=== PATIENT | male | born 1975 | race Caucasian/White ===

== ENCOUNTER 2017-07-06 16:59 | Inpatient (IN) | payer BC, OTHER ==
[2017-07-06] VITALS: BP 114/74
[~2017-07-06] VITALS: Ht 182.9 cm; Wt 95.3 kg
[2017-07-06] MEDS ORDERED: MIRALAX 17 GM POWD.PACK PO PRN (20:00)
[2017-07-06] MEDS ORDERED: ONDANSETRON ODT 4 MG TAB.RAPDIS SL PRN (20:00)
[2017-07-06] MEDS ORDERED: CLONIDINE HCL 0.1 MG TABLET PO PRN (20:00)
[2017-07-06] MEDS ORDERED: DICYCLOMINE HCL 20 MG TABLET PO PRN (20:00)
[2017-07-06] MEDS ORDERED: LORAZEPAM 2 MG/1 ML VIAL IM PRN (20:00)
[2017-07-06] MEDS ORDERED: LOPERAMIDE HCL 2 MG CAPSULE PO PRN ×2 (20:00)
[2017-07-06] MEDS ORDERED: ACETAMINOPHEN 325 MG TABLET PO PRN (20:00)
[2017-07-06] MEDS ORDERED: MAG HYDROX/AL HYDROX/SIMETH 30 ML LIQUID UDC PO PRN (20:00)
[2017-07-06] MEDS ORDERED: IBUPROFEN 400 MG TABLET PO PRN (20:00)
[2017-07-06] MEDS ORDERED: DOCUSATE SODIUM 250 MG CAPSULE PO PRN (20:00)
[2017-07-06] MEDS ORDERED: ONDANSETRON 4 MG/2 ML VIAL IM PRN (20:00)
[2017-07-06] MEDS ORDERED: DIAZEPAM 10 MG TABLET PO PRN ×2 (20:00)
[2017-07-06] MEDS ORDERED: DIAZEPAM 5 MG TABLET PO PRN (20:00)
[2017-07-06] MEDS ORDERED: MAGNESIUM HYDROXIDE 30 ML LIQUID UDC PO PRN (20:00)
[2017-07-06] MEDS ORDERED: DIAZEPAM 10 MG TABLET PO SCH (21:00)
--- NOTE | 2017-07-06 21:50 | NUR ---
PRE - ADMISSION NOTE : Pt. is 42 year old male , came to [facility] for medically supervised withdrawal from ROXYCONTIN, PERCOCET, DIAZEPAM on 07/06/2017 . Pt. is NKA, Full Code, on Regular Diet Pt. denies history of withdrawal-induced seizures. Pt. denies history of SI/Hi. Pt. states that drug usage negatively affects his social, professional and private life. Upon admission pt. is intoxicated , poor eye contact, anxious, sad facial expression, flat affect, time to time he is restless, emotionally volatile, poor concentration. He complains of difficulty falling asleep and insomnia, wakes up frequently and has restless sleep. Pt. also states difficulty to struggle with his chronic cervical pain after three operations ( C4-Th1 Fusion) , last one in January 2017. Pt. is intoxicated , alert and oriented x3, speech is clear and audible. Pt. denies chest pain, shortness of breath, PERRLA (bilateral miosis), RS=467/83, HR=80,regular, RR=16, unlabored and even, SpO2=98% with a room air, he denies pain at this time. Sgykhx=[id number], Height=6. CIWA=6, COWS=4. Pt. will be admitted to the unit.
[2017-07-06 22:00] VITALS: BP 128/83
[2017-07-06 22:19] LABS: *AMPHETAMINE, URINE NEGATIVE (NEGATIVE); *BARBITURATE, URINE NEGATIVE (NEGATIVE); *CANNABINOID, URINE POSITIVE (NEGATIVE); *COCCAINE, URINE NEGATIVE (NEGATIVE); *OPIATE, URINE POSITIVE (NEGATIVE); *PHENCYCLIDINE SCREEN,URINE NEGATIVE (NEGATIVE)
[2017-07-06 22:42] LABS: BASOPHILS # (AUTO) 0.1 K/uL (0.0-8.0); EOSINOPHILS # (AUTO) 0.2 K/uL (0.0-0.7); EOSINOPHILS % (AUTO) 2.4 % (0.0-7.0); HEMOGLOBIN 13.7 g/dL (12.5-16.3); LYMPHOCYTES # (AUTO) 2.5 K/uL (20.0-40.0); LYMPHOCYTES % (AUTO) 36.9 % (20.5-51.5); MEAN CORPUSCULAR HEMOGLOBIN 30.1 uug (23.8-33.4); MEAN CORPUSCULAR HGB CONC 34 g/dL (32.5-36.3); MEAN CORPUSCULAR VOLUME 87.7 fL (73.0-96.2); MONOCYTES # (AUTO) 0.6 K/uL (2.0-10.0); MONOCYTES % (AUTO) 8.3 % (0.0-11.0); NEUTROPHILS # (AUTO) 3.6 K/uL (1.8-8.9); NEUTROPHILS % (AUTO) 51.4 % (38.5-71.5); PLATELET COUNT (AUTO) 178 K/uL (152-348); RED BLOOD CELL COUNT(AUTO) 4.57 MIL/uL (4.06-5.63); WHITE BLOOD COUNT (AUTO) 6.9 K/uL (3.6-10.2)
[2017-07-06 22:55] LABS: ALANINE AMINOTRANSFERASE 20 U/L (16-63); ALKALINE PHOSPHATASE 68 U/L (50-136); ASPARTATE AMINOTRANSFERASE 16 U/L (15-37); BILIRUBIN,TOTAL 0.4 mg/dL (0.2-1.0); CARBON DIOXIDE 28 mmol/L (21-32); CHLORIDE 103 mmol/L (98-107); GLUCOSE 93 mg/dL (74-106); MAGNESIUM 1.7 mg/dL (1.8-2.4); TOTAL PROTEIN, SERUM 7.7 g/dL (6.4-8.2); UREA NITROGEN, BLOOD 19 mg/dL (7-18)
[2017-07-06 23:00] LABS: ETHANOL < 3 MG/DL (0-0)
[2017-07-06] MEDS ORDERED: BUPRENORPHINE HCL 2 MG TAB.SUBL SL PRN (23:55)
--- NOTE | 2017-07-06 23:59 | NUR ---
ADMISSION NOTE : Pt. is 42 year old male , admitted to [facility] for medically supervised withdrawal from ROXYCONTIN, PERCOCET, DIAZEPAM on 07/06/2017 . Pt. is NKA, Full Code, on Regular Diet. He placed on 5 day Subutex and Valium taper started on 07/07/2017. His Primary Care Provider is Dr. Yaneli Martines, [place], [place]. Pt. denies history of withdrawal-induced seizures. Pt. denies history of SI/Hi. Pt. states that drug usage negatively affects his social, professional and private life. Upon admission pt. is intoxicated , poor eye contact, anxious, sad facial expression, flat affect, time to time he is restless, emotionally volatile, poor concentration. He complains of difficulty falling asleep and insomnia, wakes up frequently and has restless sleep. Pt. also states difficulty to struggle with his chronic cervical pain after three operations ( C4-Th1 Fusion) , last one in January 2017. Pt. is INTOXICATED , alert and oriented x3, speech is clear and audible. Pt. denies chest pain, shortness of breath, PERRLA (bilateral miosis), WM=283/83, HR=80,regular, RR=16, unlabored and even, SpO2=98% with a room air, he denies pain at this time. Atadyp=[id number], Height=6. CIWA=6, COWS=4. Lungs sound clear in all lobes, abdomen is soft , last BM on 07/06/2017. Pt.s skin is intact and dry. Pt. was able to provide UDS sample, see results in the PC chart. las BM on 07/06/2017. Pt. was oriented to his room and unit, provided with printed and verbal instructions about Substance Use Disorder, Fall Risks , Seizures, medical management for medically supervised withdrawal. Safety measures in place : bed on lowest position with side rails x2 up for safety, call light within reach. Will continue to monitor closely and offer help. SUBSTANCE USE HISTORY : Diazepam 30mg QD PO 5 mo., last use on 07/06/2017 , uses since January 2017 ROXYCONTIN 50mg QD PO , last use on 07/06/2017 , uses since January 2017 PERCOCET 10mg QD PO , last use on 07/06/2017 , uses since January 2017 Pt. smokes occasionally Marijuana. TREATMENT HISTORY : Pt. states multiple attempts of detox. at home, it his first detox. in the medical facility. PAST MEDICAL HISTORY : Anxiety, Depression , C4-Th1 Fusion ( three operations in 2011, 2013, 2016) FAMILY HISTORY : CAD, DM II, HTN , Ca.
[2017-07-07] VITALS: BP 114/74
[2017-07-07] MEDS ORDERED: Lidocaine EXT (05:09)
[2017-07-07] MEDS ORDERED: PREG150C PO (05:10)
[2017-07-07] MEDS ORDERED: DOCU100C36 PO (05:13)
[2017-07-07] MEDS ORDERED: ACYC200C PO (05:13)
[2017-07-07] MEDS ORDERED: DIAZ10TA PO (05:16)
[2017-07-07] MEDS ORDERED: BUPR-51 PO (05:16)
[2017-07-07] MEDS ORDERED: OXYC-133 PO (05:16)
[2017-07-07] MEDS ORDERED: OXYC15TA46 PO (05:16)
[2017-07-07] MEDS ORDERED: BUPR100T5 PO (05:17)
--- NOTE | 2017-07-07 06:16 | NUR ---
END OF SHIFT NOTE : Pt. is 42 year old male , admitted to [facility] for medically supervised withdrawal from ROXYCONTIN, PERCOCET, DIAZEPAM on 07/06/2017 . He placed on 5 day Subutex and Valium taper started on 07/07/2017. Pt. is compliant with a TX plan, No PRNs given during material handler 2nd shift . CIWA , COWS taken when pt. was awake, he is still intoxicated, bilateral meiosis. He slept for most of the night. Last CIWA=6 COWS= 4 at 04:00. Qaqszq=[id number] , voided x 1 , slept= 6 hours. Safety measures in place : bed on lowest position with side rails x2 up for safety, call light within reach. Will continue to monitor closely and offer help.
--- NOTE | 2017-07-07 07:43 | NUR ---
Start of Shift Manager Ecommerce received report on 42 year old male admitted to [facility] on 07/06/17 for Benzodiazepine and Opiate detoxification. Pt reports NKDA, eats a regular diet and is a full code. Pt reports a PMH of anxiety, depression, C4-T1 fusion with 3 previous operations. No PRN medication administered on NOC, with a OT order of 10mg Valium administered. Pt will start a Valium and Subutex taper this morning. Last COWS 4 and CIWA 6, per NOC. Manager Ecommerce encounters pt in his room resting on bed. Pt is A/O x4, calm and cooperative and able to make needs known. Pt denies any associated withdrawal symptoms and is, feeling pretty good. Pts only complaint is that of discomfort related to bruised ribs he suffered falling, prior to [facility] admission. Bed in low position, wheels locked and side rails up x2.
[2017-07-07 08:05] VITALS: BP 104/62
[2017-07-07] MEDS: DIAZEPAM 10 MG TABLET PO SCH ×3 (08:41→21:19)
[2017-07-07] MEDS: BUPRENORPHINE HCL 2 MG TAB.SUBL SL SCH ×3 (08:42→21:19)
[2017-07-07] MEDS ORDERED: HYDROXYZINE PAMOATE 25 MG CAPSULE PO PRN (09:00)
[2017-07-07] MEDS ORDERED: TUBERCULIN,PURIF.PROT.DERIV. 5 TU/0.1 ML TEST ID ONE (09:00)
[2017-07-07] MEDS ORDERED: MAGNESIUM OXIDE 400 MG TABLET PO ONE (09:00)
--- NOTE | 2017-07-07 09:01 | NUR ---
TB Refusal Pt states, " what do I need that for?" Pt refuses PPD administration, agreeing to a chest X-ray if necessary for placement. notified.
[2017-07-07] MEDS ORDERED: PATIENT MAY USE OWN MED- MD OK PO SCH (10:30)
[2017-07-07] MEDS: buPROPion XL 150 MG TAB.SR.24H PO SCH (12:09)
[2017-07-07] MEDS: DULOXETINE 30 MG CAPSULE.DR PO SCH (12:09)
[2017-07-07] MEDS: PATIENT MAY USE OWN MED- MD OK PO SCH ×2 (12:09→21:19)
[2017-07-07] MEDS: PATIENT MAY USE OWN MED- MD OK TOP SCH (12:10)
--- NOTE | 2017-07-07 12:16 | NUR ---
Late Administration of Medication Architectural Sales Consultant was not able to administer am medication until actually administered due to a delay from pharmacy with pt's own home meds. All medication administered with pt tolerating well. Will continue to monitor, support and encourage according to plan of care.
[2017-07-07 12:20] VITALS: BP 127/87
[2017-07-07] MEDS ORDERED: PATIENT MAY USE OWN MED- MD OK TOP ONE (15:30)
[2017-07-07 16:45] VITALS: BP 123/85
--- NOTE | 2017-07-07 19:12 | NUR ---
End of Shift Commercial Lines Underwriter provided report on 42 year old male admitted to [facility] on 07/06/17 for Benzodiazepine and Opiate detoxification. Pt reports NKDA, eats a regular diet and is a full code. Pt reports a PMH of anxiety, depression, C4-T1 fusion with 3 previous operations. No PRN medications administered this shift. Pt started on a Valium and Subutex taper today, tolerating well. Last COWS 6 and CIWA 5, recorded at 1600. Pt is A/O x4, calm and cooperative and able to make needs known. Pt has been matter of fact and concrete with a flat affect. Pt is demanding and manipulative. Staff splitting. Bed in low position, wheels locked and side rails up x2.
[2017-07-07 20:00] VITALS: BP 127/82
--- NOTE | 2017-07-07 20:00 | NUR ---
Start of Shift Note Received 42 y/o male px admitted for medical withdrawal of opiates/bezos . Px was put on 5 day Valium and 5 day Subutex taper. Px stated he feels good with the taper. Unfolded clothes noted on top of cabinet and unfinished snacks on the bed side table. Px verbalized that his anxiety is 5/10 and has body aches of 4/10. Px asked for talcum powder of some sort to help for his groin itch and pill to help him sleep tonight. Bed on lowest position, side rails up 2x, and call light within reach. We'll continue to monitor.
[2017-07-07] MEDS ORDERED: CLOTRIMAZOLE 1% CREAM 30 GM TUBE TOP PRN (20:45)
--- NOTE | 2017-07-07 21:00 | NUR ---
Clotrimazole cream Px complained of groin itch. Dr. Carrillo informed with order of Lotrimin cream 1% to apply on affected area q12H, carried out and started. We'll continue to monitor.
[2017-07-07] MEDS: diphenhydrAMINE 50 MG CAPSULE PO PRN (21:19)
--- NOTE | 2017-07-07 21:19 | NUR ---
PRN Benadryl Px asked for pill to help him sleep tonight. Benadryl 50 mg/cap, 1 cap given PO as PRN med. We'll continue to monitor.
[2017-07-07] MEDS: CLOTRIMAZOLE 1% CREAM 30 GM TUBE TOP SCH (21:20)
[2017-07-08] VITALS: BP 112/71
[2017-07-08 04:00] VITALS: BP 118/69
--- NOTE | 2017-07-08 04:00 | NUR ---
COWS and CIWA deferred COWS and CIWA deferred at 0000 and 0400 due to the px is asleep, to assess if the px is awake per doctor's order. We'll continue to monitor.
[2017-07-08 07:08] LABS: HEPATITIS B SURFACE AG Negative (Negative)
--- NOTE | 2017-07-08 07:23 | NUR ---
End of Shift Note Px informed that he can give us his soiled clothes for laundry. Benadryl 50 mg tab PO PRN and Lotrimin cream q12H were effective for his groin itch. Px slept for 6 hours. Last COWS 6 and CIWA 7. At 0500, px urinated on his clothes in bed. Px stated that he drank a lot of coffee yesterday and 4 bottles of water. Px verbalized "I was in a very deep sleep". Bed was cleaned and put fresh linens. Px's oral intake of 2 L, voided 4x, and No BM. Px slept for 6 hours. At 0600, px took a shower. Left awake on bed eating some snacks. Bed on lowest position, side rails up 2x, and call light within reach. We'll continue to monitor. Endorsed to AM shift nurse.
--- NOTE | 2017-07-08 07:30 | NUR ---
START OF SHIFT RECEIVED PT LAYING IN BED, A/OX4, RESPIRATIONS EVEN AND UNLABORED. PT REPORTS HAVING "EQUILIBRIUM PROBLEMS;" PT STATES HE DOES NOT FEEL DIZZY BUT WHEN WALKING HAVE MILD BALANCE PROBLEM. PT STATES HE IS NOT UNSTEADY WHEN WALKING. ASKED PT TO STAND AND WALK AND PT WAS ABLE TO WALK STABLE AND STEADY. ENCOURAGED PT TO DANGLE LEGS AND SLOWLY GET UP AND OFF OF BED WHEN GETTING UP. ENCOURAGED PT TO USE CALL LIGHT WHEN FEELING UNSTEADY. SIDE RAILS UP X2, BED IS IN LOWEST POSITION. ALL SAFETY MEASURES IN PLACE. WILL CONTINUE TO MONITOR.
[2017-07-08 08:00] VITALS: BP 121/77
[2017-07-08] MEDS ORDERED: BUPRENORPHINE HCL 2 MG TAB.SUBL SL SCH (09:00)
[2017-07-08] MEDS: CLOTRIMAZOLE 1% CREAM 30 GM TUBE TOP SCH ×2 (09:07→21:38)
[2017-07-08] MEDS: PATIENT MAY USE OWN MED- MD OK TOP SCH (09:07)
[2017-07-08] MEDS: DULOXETINE 30 MG CAPSULE.DR PO SCH (09:07)
[2017-07-08] MEDS: DIAZEPAM 5 MG TABLET PO SCH ×2 (09:08→12:46)
[2017-07-08] MEDS: buPROPion XL 150 MG TAB.SR.24H PO SCH (09:08)
[2017-07-08] MEDS: PATIENT MAY USE OWN MED- MD OK PO SCH ×3 (09:08→21:37)
[2017-07-08 12:00] VITALS: BP 101/70
[2017-07-08] MEDS: BUPRENORPHINE HCL 2 MG TAB.SUBL SL SCH ×2 (15:15→21:37)
[2017-07-08 16:00] VITALS: BP 130/86
[2017-07-08] MEDS ORDERED: DIAZEPAM 5 MG TABLET PO SCH (17:00)
--- NOTE | 2017-07-08 19:31 | NUR ---
END OF SHIFT LAST COWS 7, CIWA 8 @1600. PT ATTENDED ALL GROUPS AND PARTICIPATED IN ALL ACTIVITIES EXCEPT AM GROUP. PT REPORTS FEELING WEAK AND TIRED. SOFT CERVICAL BRACE GIVEN TO PT ORDERED BY MD FOR SUPPORT. PT REFUSED TO HAVE SIDE RAILS PADDED. BED IS IN LOWEST POSITION. WILL GIVE ALL ENDORSEMENT TO CARDIAC SPECIALIST NURSE.
--- NOTE | 2017-07-08 19:45 | NUR ---
Start of Shift Note Received 42 y/o male px admitted for medical withdrawal of opiates/benzos . Px was put on 5 day Valium and 5 day Subutex taper. Px is tolerating the taper. During the rounds at 1945, Bilateral hand tremors noted. Unfolded clothes noted on top of cabinet and unfinished snacks on the bed side table. Encouraged px if he has time, give his soiled clothes for laundry and he may toss his unfinished snacks in the garbage bin. Px verbalized that his anxiety is 4/10 and has spine aches of 6/10. Bed on lowest position, side rails up 2x, and call light within reach. We'll continue to monitor.
[2017-07-08 20:00] VITALS: BP 123/86
[2017-07-08] MEDS ORDERED: DIAZEPAM 10 MG TABLET PO SCH (21:00)
[2017-07-09] VITALS: BP 121/81
[2017-07-09 04:00] VITALS: BP 118/77
--- NOTE | 2017-07-09 07:02 | NUR ---
End of Shift Note No PRN meds given through the shift. At the start of shift, COWS 6 and CIWA 7. Last COWS 5 and CIWA 5 at 0635. Px slept for 9 hours. Pxs oral intake is 1 L, voided 2x , No BM. At 0640, Px went for a shower. Bed on lowest position, side rails up 2x, and call light within reach. We'll continue to monitor. Endorsed to AM shift nurse.
--- NOTE | 2017-07-09 07:15 | NUR ---
Start of Shift Business Line Controller received report on 42 year old male admitted to [facility] on 07/06/17 for Benzodiazepine and Opiate detoxification. Pt reports NKDA, eats a regular diet and is a full code. Pt reports a PMH of anxiety, depression, C4-T1 fusion with 3 previous operations. No PRN medication administered on NOC. Pt currently on a Subutex and Valium taper, tolerating well. Last COWS 5 and CIWA 5, per NOC. Business Line Controller encounters pt in his room resting on bed. Pt is A/O x4, calm and cooperative and able to make needs known. A/O x4, calm and cooperative. Pt is anxious and matter of fact with a concrete thought process and clear thought and speech. Bed in low position, wheels locked and side rails up x2.
[2017-07-09] MEDS: DIAZEPAM 5 MG TABLET PO SCH ×3 (08:31→20:28)
[2017-07-09] MEDS: DULOXETINE 30 MG CAPSULE.DR PO SCH (08:31)
[2017-07-09] MEDS: buPROPion XL 150 MG TAB.SR.24H PO SCH (08:33)
[2017-07-09] MEDS: CLOTRIMAZOLE 1% CREAM 30 GM TUBE TOP SCH ×2 (08:33→20:29)
[2017-07-09] MEDS: BUPRENORPHINE HCL 2 MG TAB.SUBL SL SCH ×3 (08:33→20:28)
[2017-07-09] MEDS: PATIENT MAY USE OWN MED- MD OK PO SCH ×5 (08:35→20:29)
[2017-07-09] MEDS: PATIENT MAY USE OWN MED- MD OK TOP SCH (08:35)
[2017-07-09 08:55] VITALS: BP 129/79
--- NOTE | 2017-07-09 09:12 | NUR ---
0900 Lysaint elizabeth edgewooda Medication scanned, own medication bag. No medication in bag, CRN retrieved dose from Pharmacy and Pharmacy entered order. Medication was administered per order.
--- NOTE | 2017-07-09 09:34 | NUR ---
ENDORSEMENT Pt endorsed to me by nurse. All information received.
--- NOTE | 2017-07-09 09:34 | NUR ---
Endorsement Full endorsement to primary nurse. All up to date data presented with no further comments, questions or concerns voiced.
--- NOTE | 2017-07-09 10:30 | NUR ---
Therapist prompted client about group times. Client has been attending all groups and plans to continue.
[2017-07-09] MEDS ORDERED: FLEET ENEMA 133 ML BOTTLE RC PRN (11:15)
[2017-07-09] MEDS: DOCUSATE SODIUM 250 MG CAPSULE PO SCH (12:08)
--- NOTE | 2017-07-09 12:29 | NUR ---
PRN Pt states feels constipated. Fleet enema administered prn per MD order.
[2017-07-09 12:37] VITALS: BP 144/81
--- NOTE | 2017-07-09 13:29 | NUR ---
PRN EVAL Pt states had small BM.
[2017-07-09] MEDS: BISACODYL 5 MG TABLET.DR PO PRN (13:53)
--- NOTE | 2017-07-09 13:54 | NUR ---
PRN Pt states still feels constipated. Dulcolax po prn per MD order given and tolerated well.
--- NOTE | 2017-07-09 14:54 | NUR ---
PRN EVAL Pt states had a bm.
[2017-07-09 16:00] VITALS: BP 138/78
[2017-07-09] MEDS ORDERED: MENT71OI TP (16:51)
--- NOTE | 2017-07-09 17:20 | NUR ---
Therapist prompted client to come to groups.
--- NOTE | 2017-07-09 18:33 | NUR ---
END OF SHIFT Pt 42 y/o male admitted for opiate medical withdrawal. Pt alert and oriented to name, place, and time. Perrla. Skin warm and moist to touch. Respirations even and unlabored. Bilateral hand tremors noted. Pt appears disheveled with hair uncombed. Pt hyperverbal with pressured speech noted. Pt malodorous. Pt observed mostly in room today. Pt was seen by MD today. Pt medication compliant. No ASE noted. Cows= 10@1200, @1600. CIWA= 9 , and 9@1700. Is on a 5 day ativan taper and is on day 4. Pt on a 4 day subutex taper and is on day 3. Pt was given a fleet enema prn per MD order and Dulcolax po prn per MD order. Bed on lowest position with side rails 2 up for safety. Call light within reach.
--- NOTE | 2017-07-09 19:30 | NUR ---
START OF SHIFT Received 42 year old male patient. Pt is alert and oriented x4. Pt is noted to be anxious, restless, aggressive and hyperactive Pt is noted with loud speech and is hyperverbal. Per endorsement, pt received PRN Enema, Dulcolax. Breathing is even and unlabored. Safety measures in place. Will continue to monitor.
[2017-07-09 20:15] VITALS: BP 138/74
[2017-07-09] MEDS: diphenhydrAMINE 50 MG CAPSULE PO PRN (20:32)
--- NOTE | 2017-07-09 20:32 | NUR ---
PRN BENADRYL Pt complains of inability to sleep. PRN Benadryl administered as ordered. Safety measures in place. Will continue to monitor effectiveness.
--- NOTE | 2017-07-09 21:32 | NUR ---
PRN REASSESSMENT PRN medication effective. Pt is lying in bed with eyes closed and is noted to be asleep. Breathing even and unlabored. Safety measures in place. Will continue to monitor.
[2017-07-10] VITALS: BP 122/78
[2017-07-10] MEDS: METHOCARBAMOL 750 MG TABLET PO PRN ×3 (03:48→22:18)
--- NOTE | 2017-07-10 03:48 | NUR ---
PRN ROBAXIN Pt complains of left thigh muscle aches 12/01. PRN Robaxin administered as ordered. Safety measures in place. Will monitor effectiveness.
[2017-07-10 03:50] VITALS: BP 116/75
--- NOTE | 2017-07-10 04:48 | NUR ---
PRN REASSESSMENT PRN medication effective. Pt lying in bed with eyes closed noted to be asleep. No facial grimacing noted. Safety measures in place. Will continue to monitor.
--- NOTE | 2017-07-10 06:58 | NUR ---
END OF SHIFT Pt is a 42 year old male patient. Pt remains alert and oriented x4. Pt was noted with anxiety and restlessness during shift. He received PRN Benadryl for insomnia, which was effective. At 0345 pt complained of left thigh pain, he received PRN Robaxin. He slept a total of 6 hrs, Intake: 1,355mL, Void: x2, BM: x1, COWS;9, CIWA:9. Breathing is even and unlabored. Safety measures in place. Endorsed to AM shift.
--- NOTE | 2017-07-10 07:30 | NUR ---
START OF SHIFT: PATIENT IS A 42 YR OLD MALE ADMITTED TO [facility] ON 07/06/17 FOR A MEDICALLY SUPERVISED WITHDRAWAL FROM OPIATES AND BENZODIAZEPINES. HE IS ON A 5 DAY SUBUTEX/VALIUM TAPER AND TODAY IS DAY 4. PATIENT IS SITTING ON SIDE ON BED WITH AN ANXIOUS EXPRESSION ON HIS FACE AND ASKING QUESTIONS ABOUT THE MEDICATIONS HE WILL BE GETTING THIS AM, ALL QUESTIONS ANSWERED BY NURSE WHICH SEEMED TO RELIEVE PATIENT ANXIETY. PATIENT REQUESTED PRN ROBAXIN AND BENADRYL ON PM SHIFT AND SLEPT FOR 6 HOURS. LAST CIWA 9 AND COWS 9 @ 0400. WILL CONTINUE TO FOLLOW MD PLAN OF CARE.
[2017-07-10 08:00] VITALS: BP 121/87
[2017-07-10] MEDS: DULOXETINE 30 MG CAPSULE.DR PO SCH (09:09)
[2017-07-10] MEDS: DIAZEPAM 5 MG TABLET PO SCH ×2 (09:09→20:18)
[2017-07-10] MEDS: DOCUSATE SODIUM 250 MG CAPSULE PO SCH (09:09)
[2017-07-10] MEDS: BUPRENORPHINE HCL 2 MG TAB.SUBL SL SCH ×2 (09:09→20:18)
[2017-07-10] MEDS: buPROPion XL 150 MG TAB.SR.24H PO SCH (09:09)
[2017-07-10] MEDS: PATIENT MAY USE OWN MED- MD OK PO SCH ×3 (09:10→20:18)
[2017-07-10] MEDS: CLOTRIMAZOLE 1% CREAM 30 GM TUBE TOP SCH ×2 (09:10→20:18)
[2017-07-10] MEDS: PATIENT MAY USE OWN MED- MD OK TOP SCH (09:11)
[2017-07-10] MEDS: [UNRECOGNIZED DRUG - OTHER] TOP PRN (09:11)
[2017-07-10] MEDS: CALMOSEPTINE TOP PRN (09:11)
[2017-07-10] MEDS ORDERED: NAPROXEN 250 MG TABLET PO PRN (11:30)
[2017-07-10 12:00] VITALS: BP 117/79
--- NOTE | 2017-07-10 13:41 | NUR ---
PRN MEDS PRN ROBAXIN 750MG PO GIVEN FOR MUSCLE ACHES, WILL REASSESS IN 1 HR
--- NOTE | 2017-07-10 13:57 | NUR ---
Therapist prompted client to come to groups.
--- NOTE | 2017-07-10 14:41 | NUR ---
PRN ROBAXIN ROBAXIN 750MG PO EFFECTIVE PER PT REPORT, BODY ACHES NOW 3/10 PER PT
[2017-07-10 16:00] VITALS: BP 114/64
--- NOTE | 2017-07-10 19:30 | NUR ---
START OF SHIFT Received 42 year old male patient. Pt is noted to be anxious and fatigued. Pt lying in bed reading. Pt verbalized that he needs rest. Per endorsement, pt received PRN Robaxin. Pt is alert and oriented x4, breathing is even and unlabored. Safety measures in place. Will continue to monitor.
--- NOTE | 2017-07-10 19:33 | NUR ---
END OF SHIFT : PATIENT ADMITTED TO [facility] ON 07/06/17 FOR WITHDRAWAL FROM OPIATES AND BENZOS. PATIENT HAS BEEN ON A 5 DAY VALIUM / SUBUTEX TAPER AND TODAY WAS DAY 4 . PATIENT HAS ATTENDED GROUP TODAY AND [place]. LAST COWS 6 AND CIWA 8 @ 1600. FLUID INTAKE OF 1800ML TODAY WITH 4 VOIDS AND 1 BM. SAFETY MEASURES IN PLACE , FOLLOW MD PLAN OF CARE
[2017-07-10 20:00] VITALS: BP 118/71
[2017-07-10] MEDS: diphenhydrAMINE 50 MG CAPSULE PO PRN (20:18)
--- NOTE | 2017-07-10 20:18 | NUR ---
PRN BENADRYL Pt complains of inability to fall asleep. PRN Benadryl administered as ordered. Safety measures in place. Will monitor effectiveness.
--- NOTE | 2017-07-10 21:18 | NUR ---
PRN BENADRYL REASSESSMENT PRN medication ineffective. Pt still awake, in recreation room. Breathing is even and unlabored, safety measures in place. Will continue to monitor.
--- NOTE | 2017-07-10 22:18 | NUR ---
PRN ROBAXIN Pt complains of left side rib muscle pain 01/01. Pt stated " I may have pulled something." PRN Robaxin administered as ordered. Safety measures in place. Will monitor effectiveness.
--- NOTE | 2017-07-10 23:18 | NUR ---
PRN ROBAXIN REASSESSMENT PRN medication effective. Pt lying in bed, appears drowsy. Reports pain has decreased. Breathing is even and unlabored, safety measures in place. Will continue to monitor.
[2017-07-11 00:10] VITALS: BP 112/65
--- NOTE | 2017-07-11 04:15 | NUR ---
VITALS REFUSED, COWS/CIWA DEFERRED 0400 vitals refused. COWS and CIWA deferred d/t pt lying in bed with eyes closed noted to be asleep. Breathing is even and unlabored. Safety measures in place. Will continue to monitor.
--- NOTE | 2017-07-11 06:59 | NUR ---
END OF SHIFT Pt is a 42 year old male patient. Pt remains alert and oriented x4. He had complaints of insomnia, anxiety, and muscle aches during shift. He received PRN Benadryl and Robaxin. He slept a total of 8 hrs, Intake: 1,342 Void: x1, BM:0, COWS:6, CIWA:7. Breathing is even and unlaboreed. Safety measures in place. Endorsed to AM shift.
--- NOTE | 2017-07-11 07:24 | NUR ---
START OF SHIFT: PATIENT IS ASLEEP IN BED AT THIS TIME, BREATHING EVEN AND UNLABORED, SIDE RAILS UP X 2. PATIENT REQUIRED PRN BENADRYL 50MG PO AND ROBAXIN 750MG PO ON PM SHIFT, PATIENT SLEPT FOR 8 HRS LAST NIGHT. LAST COWS 6 AND CIWA 7, WILL CONTINUE TO FOLLOW MD PLAN OF CARE, THIS IS PATIENTS DAY 5 OF A 5 DAY VALIUM/SUBUTEX TAPER.
[2017-07-11 08:00] VITALS: BP 105/69
[2017-07-11] MEDS: buPROPion XL 150 MG TAB.SR.24H PO SCH (08:41)
[2017-07-11] MEDS: DOCUSATE SODIUM 250 MG CAPSULE PO SCH (08:41)
[2017-07-11] MEDS: PATIENT MAY USE OWN MED- MD OK PO SCH ×3 (08:42→21:32)
[2017-07-11] MEDS: DULOXETINE 30 MG CAPSULE.DR PO SCH (08:42)
[2017-07-11] MEDS: [UNRECOGNIZED DRUG - OTHER] TOP PRN (08:43)
[2017-07-11] MEDS: CALMOSEPTINE TOP PRN (08:43)
[2017-07-11] MEDS: CLOTRIMAZOLE 1% CREAM 30 GM TUBE TOP SCH ×2 (08:47→21:00)
[2017-07-11] MEDS: PATIENT MAY USE OWN MED- MD OK TOP SCH (08:48)
[2017-07-11] MEDS ORDERED: DIAZEPAM 5 MG TABLET PO SCH (09:00)
[2017-07-11] MEDS ORDERED: BUPRENORPHINE HCL 2 MG TAB.SUBL SL SCH (09:00)
[2017-07-11 12:00] VITALS: BP 115/87
--- NOTE | 2017-07-11 12:30 | NUR ---
Therapist prompted client to come to group,.
[2017-07-11] MEDS ORDERED: HYDR-3895 PO (14:16)
[2017-07-11] MEDS ORDERED: CLON0.1T14 PO (14:16)
[2017-07-11] MEDS ORDERED: METH-406 PO (14:16)
[2017-07-11] MEDS ORDERED: DULO30CA2 PO (14:16)
[2017-07-11] MEDS ORDERED: NAPR250T4 PO (14:16)
[2017-07-11 16:00] VITALS: BP 108/72
[2017-07-11] MEDS: BISACODYL 5 MG TABLET.DR PO PRN (18:06)
[2017-07-11] MEDS: METHOCARBAMOL 750 MG TABLET PO PRN (18:06)
--- NOTE | 2017-07-11 18:06 | NUR ---
PRN MEDS ROBAXIN 750MG PO, VISTARIL 25MG PO , DULCOLAX 10 MG TAB GIVEN PER PT REQUEST PT STATES HE HAS INCREASED ANXIETY BECAUSE HE IS GOING HOME TOMORROW HE HAS LEFT SIDE RIB PAIN 11/01 AND FEELS LIKE HE NEEDS TO HAVE A BM BUT CANNOT WILL CONTINUE TO MONITOR
--- NOTE | 2017-07-11 19:06 | NUR ---
PRN REASSESS PATIENT STATES THAT HE FEELS LESS ANXIOUS AND THAT HIS LEFT SIDE PAIN IS NOW 3/10, MEDICATIONS EFFECTIVE
--- NOTE | 2017-07-11 19:30 | NUR ---
START OF SHIFT Received 42 year old male. Pt is alert and oriented x4. Pt noted to be anxious with racing thoughts regarding his discharge tomorrow. He has completed his taper and tolerated well. Per endorsement, he received PRN Vistaril, Clonidine, Robaxin, and Dulcolax. He has completed his taper and tolerated well. Breathing is even and unlabored. Safety measures in place. Will continue to monitor.
--- NOTE | 2017-07-11 19:42 | NUR ---
END OF SHIFT PATIENT IS ON HIS LAST DAY OF VALIUM / SUBUTEX TAPER FOR OPIOID/ BENZO WITHDRAWAL. PATIENT HAS BEEN ATTENDING ALL GROUPS TODAY AND PARTICIPATED IN HIS TREATMENT PLAN. PRN MEDS GIVEN THIS SHIFT, ROBAXIN 750MG PO, VISTARIL 25MG PO, DULCOLAX 10MG PO. LAST COWS 4 AND CIWA 6 @ 1600. PATIENT HAD A FLUID INTAKE OF 2900 ML THIS SHIFT WITH 6 VOIDS AND 1 BM. CONTINUE TO FOLLOW MD PLAN OF CARE
[2017-07-11 20:00] VITALS: BP 102/52
[2017-07-11] MEDS: diphenhydrAMINE 50 MG CAPSULE PO PRN (21:32)
--- NOTE | 2017-07-11 21:32 | NUR ---
PRN BENADRYL Pt complains of inability to sleep. PRN Benadryl administered as ordered. Safety measures in place. Will continue to monitor effectiveness.
--- NOTE | 2017-07-11 21:32 | NUR ---
MEDICATION REFUSAL Pt refused 2100 dose of Lotrimin. Pt stated " I don't need it" Risks/benefits explained. Pt still refused. Safety measures in place. Will continue to monitor.
--- NOTE | 2017-07-11 22:32 | NUR ---
PRN BENADRYL REASSESSMENT PRN medication ineffective. Pt still awake, reports he is ready to sleep soon and appears drowsy. Safety measures in place. Will continue to monitor.
--- NOTE | 2017-07-12 | NUR ---
VITALS REFUSED, COWS/CIWA DEFERRED Pt refused 0000 vital signs at beginning of shift. Pt stated " I just want to sleep tonight, I don't want to get woken up for vitals." COWS/CIWA deferred. Pt lying in bed with eyes closed noted to be asleep. Breathing is even and unlabored. Safety measures in place. Will continue to monitor.
--- NOTE | 2017-07-12 04:00 | NUR ---
VITALS REFUSED, COWS/CIWA DEFERRED Pt refused 0400 vital signs at beginning of shift. Pt stated " I just want to sleep tonight, I don't want to get woken up for vitals." COWS/CIWA deferred. Pt lying in bed with eyes closed noted to be asleep. Breathing is even and unlabored. Safety measures in place. Will continue to monitor.
--- NOTE | 2017-07-12 06:57 | NUR ---
END OF SHIFT Pt is a 42 year old male. He remains alert and oriented x4. Pt was noted with anxiety and restlessness during shift d/t his discharge. Pt verbalized that he wanted to sleep throughout the night and refused 0000 and 0400 vital signs. He is scheduled to be DC today to home. He received PRN Benadryl. He slept a total of 5 hrs, Intake: 750mL, Void: x2, BM:0, COWS:7, CIWA:7. Breathing is even and unlabored. Safety measures in place. Endorsed to AM shift.
--- NOTE | 2017-07-12 07:30 | NUR ---
Start of shift note; Received report from night nurse. Patient is a 42 year old male admitted on 07/06/17 for Benzodiazepine/ Opiate withdrawals. Patient is AOX4 complaining or anxiety related to discharge, sweats and agitation. Patient completed treatment without any adverse reactions. Patient is medically cleared for discharge today. All safety measures secured. Will continue to monitor patient.
[2017-07-12 08:00] VITALS: BP 98/68
[2017-07-12] MEDS: CLOTRIMAZOLE 1% CREAM 30 GM TUBE TOP SCH (08:40)
[2017-07-12] MEDS: PATIENT MAY USE OWN MED- MD OK PO SCH ×2 (08:40→08:41)
[2017-07-12] MEDS: PATIENT MAY USE OWN MED- MD OK TOP SCH (08:41)
[2017-07-12] MEDS: buPROPion XL 150 MG TAB.SR.24H PO SCH (08:41)
[2017-07-12] MEDS: DULOXETINE 30 MG CAPSULE.DR PO SCH (08:41)
[2017-07-12] MEDS: DOCUSATE SODIUM 250 MG CAPSULE PO SCH (08:41)
--- NOTE | 2017-07-12 10:03 | NUR ---
Discharge note; Patient is AOX4. Patient is medically cleared for discharge today. All valuables, belongings, prescriptions and home medications returned to patient. Patient was picked up by a family member as planned. Patient left in a stable condition. Met all patient's needs.
== END 2017-07-12 10:03 | disposition home or self-care (01) | DRG 895 ==
LOC: SRC 19:44
PROVIDERS: ADMIT Internal Medicine; ATTEND Internal Medicine
PROC: HZ2ZZZZ Detoxification Services for Substance Abuse Treatment (ICD-10-PCS; principal; 2017-07-06)
PROC: HZ41ZZZ Group Counseling for Substance Abuse Treatment, Behavioral (ICD-10-PCS; 2017-07-09)
PROC: HZ31ZZZ Individual Counseling for Substance Abuse Treatment, Behavioral (ICD-10-PCS; 2017-07-09)
DX: F11.23 Opioid dependence with withdrawal (principal); F33.2 Major depressive disorder, recurrent severe without psychotic features; G62.9 Polyneuropathy, unspecified; E83.42 Hypomagnesemia; F12.10 Cannabis abuse, uncomplicated; F41.1 Generalized anxiety disorder; Z98.1 Arthrodesis status; Z81.1 Family history of alcohol abuse and dependence; Z81.8 Family history of other mental and behavioral disorders; Z80.9 Family history of malignant neoplasm, unspecified; Z82.3 Family history of stroke; Z82.49 Family history of ischemic heart disease and other diseases of the circulatory system; G89.4 Chronic pain syndrome; E86.0 Dehydration; B00.1 Herpesviral vesicular dermatitis; K59.03 Drug induced constipation; Z79.899 Other long term (current) drug therapy
CPT/HCPCS: 36415; 70030-TC; 80307; 80346; 80349; 80361; 83735; 85025; 86592; 86705; 86803; 87340; 87806; G0480; Q0163